=== PATIENT | female | born 1990 | race American Indian/Alaskan Native ===

== ENCOUNTER 2017-06-03 18:57 | Emergency (ER) | payer BC ==
--- NOTE | 2017-06-03 22:25 | Emergency Department Report ---
Chief Complaint: Vaginal Bleeding Stated Complaint: 6WKS PREG/VAG BLEEDING - HPI History of Present Illness: 27-year-old female past medical history presents with vaginal bleeding heavy worsening since yesterday. Patient states she is approximately 6 weeks by last menstrual period. Denies fever chills nausea or vomiting or dysuria. Came to the ED due to heavy worsening bleeding and slight crampy pain - ROS Review of Systems: 6 weeks by last menstrual period - Exam Vital Signs: Vital Signs 06/03/17 06/03/17 22:04 22:06 Temperature 98.5 F 98.5 F Pulse Rate 80 78 Respiratory 16 16 Rate Blood Pressure 145/91 145/91 O2 Sat by Pulse 100 100 Oximetry Physical Exam: Positive suprapubic discomfort, heart S1-S2. Awake alert and oriented 3 MSE screening note: Focused history and physical exam performed. Due to findings the following was ordered: Screening Assessment/Plan/Differential Dx: Vaginal bleeding during , threatened AB 1- This initial assessment/diagnostic orders/clinical plan/ treatment(s) is/are subject to change based on pt's health status, clinical progression and re- assessment by fellow clinical providers in the ED. Further treatment and workup at subsequent clinical provers discretion. Patient/guardians urged not to elope from ED as their condition may be serious if not clinically assessed and managed. 2-cBC, BMP, hCG level, ultrasound ED Disposition for MSE Condition: Stable
[2017-06-03] MEDS ORDERED: TYLENOL PO ONE (22:32)
[2017-06-03 22:58] LABS: Basophils # (Auto) 0.1 K/mm3 (0.0-0.1); Basophils % (Auto) 0.5 % (0.0-1.8); Eosinophils # (Auto) 0.2 K/mm3 (0.0-0.4); Eosinophils % (Auto) 1.7 % (0.0-4.3); Hematocrit 37.9 % (30.3-42.9); Hemoglobin 12.7 gm/dl (10.1-14.3); Lymphocytes # (Auto) 3.3 K/mm3 (1.2-5.4); Lymphocytes % (Auto) 29.8 % (13.4-35.0); Mean Corpuscular HGB Conc 33 % (30-34); Mean Corpuscular Hemoglobin 31 pg (28-32); Mean Corpuscular Volume 92 fl (79-97); Monocytes # (Auto) 0.7 K/mm3 (0.0-0.8); Monocytes % (Auto) 6.2 % (0.0-7.3); Platelet Count 346 K/mm3 (140-440); Red Blood Count 4.14 M/mm3 (3.65-5.03); Red Cell Distribution Width 13.1 % (13.2-15.2)
[2017-06-03 23:08] LABS: Bacteria,Urine 1+ /HPF (Negative); Bilirubin,Urine NEG (Negative); Blood,Urine LG (Negative); Calcium Oxalate Crystals,Urine 1+; Color,Urine Yellow (Yellow); Mucus,Urine 2+ /HPF; Protein,Urine <15 mg/dL mg/dL (Negative)
[2017-06-03 23:22] LABS: BUN/Creatinine Ratio 13; Blood Urea Nitrogen 8 mg/dL (7-17); Calcium 9.4 mg/dL (8.4-10.2); Hemolysis Index 13
--- NOTE | 2017-06-04 00:49 | Ultrasound Report ---
FINAL REPORT EXAM: US OB TRANSVAGINAL HISTORY: , bleeding, pain TECHNIQUE: Transvaginal imaging was obtained the pelvis along with Doppler interrogation of the uterus and adnexa. FINDINGS: The uterus is anteverted measuring 8.5 cm x 4.8 cm x 6.8 cm. The abdomen thickness is 8.2 mm. There is a very small cystic structure in the endometrium measuring 10 mm x 7 mm x 6 mm. This may represent a small gestational sac. A yolk sac or embryo is not seen. Free fluid is not identified. The right ovary is normal size contour blood flow and echotexture measuring 2.4 cm x 1.2 cm x 2 point cm. The left ovary measures 3.9 cm x 1.6 cm x 2.7 cm. There is a 1.5 cm functional cyst in left ovary. The blood flow is normal to left ovary. IMPRESSION: Very small intrauterine sac-like structure with measurements as described. This may represent an early gestational sac. A repeat study is recommended in 1 and half weeks to confirm viability or demise. 1.5 cm functional cyst in left ovary. No evidence of free fluid.
--- NOTE | 2017-06-04 01:01 | Ultrasound Report ---
FINAL REPORT EXAM: US OB < = 14 WEEKS FETUS HISTORY: , bleeding, pain TECHNIQUE: Transabdominal imaging was obtained of the pelvis. Doppler interrogation of the uterus and adnexa was obtained. FINDINGS: The uterus is anteverted measuring 8.5 cm x 4.8 cm x 6.8 cm. The endometrial thickness is 8.2 mm. Within the endometrium is a very small cystic structure measuring 10 mm x 7 mm x 6 mm. This may represent a very early gestational sac. A yolk sac and embryo are not seen. The cervix is closed. The right ovary is normal size contour blood flow and echotexture measuring 2.4 cm x 1.2 cm x 2.1 cm. Left ovary measures 3.9 cm x 1.6 cm x 2.7 cm. Within the left ovary is a 1.5 cm functional cyst. The blood flow is normal to left ovary. IMPRESSION: Very small intrauterine sac-like structure possibly representing an early gestational sac. Repeat imaging is recommended in 1 and half to 2 weeks to confirm viability or demise. 1.5 cm functional cyst in left ovary. No evidence of free fluid the pelvis.
--- NOTE | 2017-06-04 02:51 | Emergency Department Report ---
ED HPI - General Chief complaint: Vaginal Bleeding Stated complaint: 6WKS PREG/VAG BLEEDING Time Seen by Provider: 06/04/17 00:41 Source: patient Mode of arrival: Ambulatory Limitations: No Limitations - History of Present Illness Initial comments: 27-year-old female past medical history approximately 6 weeks by LMP presents with complaint of slightly crampy lower abdominal pain and vaginal bleeding which has worsened over the last 2-3 days. Slight clots being passed as per patient. Denies nausea vomiting fever or chills. Denies any upper abdominal pain. Denies any dysuria or increased urinary frequency. Patient is awake alert and oriented 3 not in acute distress and nontoxic appearing. 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 Has not yet had an ultrasound during . Complaint: vaginal bleeding Onset/Timin -: days(s) Radiation: suprapubic Severity: mild Severity scale (0 -10): 3 Quality: cramping Consistency: intermittent Associated symptoms: vaginal bleeding Vaginal bleeding: clots :: Yes Number of weeks : 6 OB History - Current : no complications Last menstrual period: 04/26/17 - Related Data : 4 Para: 2 Previous Rx's Medication Instructions Recorded Last Taken Type Acetaminophen [Acetaminophen TAB] 500 mg PO Q6HR PRN #20 tablet 06/04/17 Unknown Rx Allergies Allergy/AdvReac Type Severity Reaction Status Date / Time No Known Allergies Allergy Verified 06/04/17 00:50 ED Review of Systems ROS: Stated complaint: 6WKS PREG/VAG BLEEDING Other details as noted in HPI Constitutional: denies: chills, fever Eyes: denies: eye pain, eye discharge, vision change ENT: denies: ear pain, throat pain Respiratory: denies: cough, shortness of breath, wheezing Cardiovascular: denies: chest pain, palpitations Endocrine: no symptoms reported Gastrointestinal: denies: abdominal pain, nausea, diarrhea Genitourinary: as per HPI, abnormal menses. denies: urgency, dysuria, discharge Musculoskeletal: denies: back pain, joint swelling, arthralgia Skin: denies: rash, lesions Neurological: denies: headache, weakness, paresthesias Psychiatric: denies: anxiety, depression Hematological/Lymphatic: denies: easy bleeding, easy bruising ED Past Medical Hx - Past Medical History Previous Medical History?: Yes Hx Hypertension: Yes (post ) - Surgical History Past Surgical History?: Yes Additional Surgical History: right knee surgery - Social History Smoking Status: Never Smoker - Medications Home Medications: Home Medications Medication Instructions Recorded Confirmed Last Taken Type Acetaminophen [Acetaminophen TAB] 500 mg PO Q6HR PRN #20 tablet 06/04/17 Unknown Rx ED Physical Exam - General Limitations: No Limitations General appearance: alert, in no apparent distress - Head Head exam: Present: atraumatic, normocephalic - Eye Eye exam: Present: normal appearance, PERRL, EOMI - ENT ENT exam: Present: mucous membranes moist - Neck Neck exam: Present: normal inspection - Respiratory Respiratory exam: Present: normal lung sounds bilaterally. Absent: respiratory distress - Cardiovascular Cardiovascular Exam: Present: regular rate, normal rhythm. Absent: systolic murmur, diastolic murmur, rubs, gallop - GI/Abdominal GI/Abdominal exam: Present: soft, normal bowel sounds - External exam: Present: normal external exam Speculum exam: Present: vaginal bleeding Bi-manual exam: Present: normal bi-manual exam - Extremities Exam Extremities exam: Present: normal inspection - Back Exam Back exam: Present: normal inspection - Neurological Exam Neurological exam: Present: alert, oriented X3 - Psychiatric Psychiatric exam: Present: normal affect, normal mood - Skin Skin exam: Present: warm, dry, intact, normal color. Absent: rash ED Course Vital Signs 06/03/17 06/03/17 22:04 22:06 Temperature 98.5 F 98.5 F Pulse Rate 80 78 Respiratory 16 16 Rate Blood Pressure 145/91 145/91 O2 Sat by Pulse 100 100 Oximetry ED Medical Decision Making - Lab Data Result diagrams: 06/03/17 22:23 06/03/17 22:23 - Medical Decision Making A/P: Threatened miscarriage, vaginal bleeding during early 1-case discussed with Dr. Larios, labs and ultrasound report reviewed with Dr. Larios 2-I emphasized to the patient the importance of follow-up in ED in 48 hours or in her FIELD APPLICATION ENGINEER's office for repeat ultrasound and hCG level. I gave patient ectopic precautions and advised her to return to the ED immediately for any sharp abdominal pain weakness fever chills persistent nausea and vomiting worsens vaginal bleeding 3-follow-up with FIELD APPLICATION ENGINEER. Patient states she also has a scheduled appointment this with her FIELD APPLICATION ENGINEER 4- GC and wet prep sent 5- 48 hour follow-up in ED for repeat hCG and ultrasound, pt stated she understood the importance of follow up after i explained concern frp possible early ectopic as US does not clearly suggest IUP Critical care attestation.: If time is entered above; I have spent that time in minutes in the direct care of this critically ill patient, excluding procedure time. ED Disposition Clinical Impression: Threatened miscarriage in early , Vaginal bleeding during Disposition: TO HOME OR SELFCARE Is pt being admited?: No Does the pt Need Aspirin: No Condition: Stable Instructions: Ectopic (ED), Threatened Miscarriage (ED) Additional Instructions: Follow-up in ED in 48 hours for repeat ultrasound and hCG level Prescriptions: Acetaminophen [Acetaminophen TAB] 500 mg PO Q6HR PRN #20 tablet PRN Reason: Pain Referrals: [facility] [Provider Group] - 3-5 Days Forms: Work/School Release Form(ED) Time of Disposition: 02:52
[2017-06-04 03:20] VITALS: BP 123/84
== END 2017-06-04 02:55 | disposition home or self-care (01) ==
LOC: ED 18:57
DX: O20.0 Threatened abortion (principal); Z3A.01 Less than 8 weeks gestation of pregnancy
CPT/HCPCS: 36415; 76801; 76817; 80048; 81001; 84702; 84703; 85025; 86850; 86900; 86901; 87210; 87591; 99284

== ENCOUNTER 2018-04-22 06:04 | Day surgery (SDC) | payer BC, MEDICAID ==
--- NOTE | 2018-04-21 18:29 | History and Physical Report ---
History of Present Illness Date of examination: 04/16/18 Chief complaint: Sterilization History of present illness: Contraception Past: Paragard IUD Current: nothing Discussed: oral contraceptive pill, contraceptive patch, contraceptive vaginal ring, Depo Provera injection, Paragard IUD, Mirena IUD, condoms, emergency contraception, Tubal Ligation Desired: Tubal Ligation Related Contraceptive Symptoms Complains of: Abdominal pain: No Chest pain: No Headache: No Leg pain: No Acne: No Breast tenderness: No Weight gain: No Depression: No Missed pills: No Midcycle spotting: No Menorrhagia: No Amenorrhea: No Discussed with patient: Contraceptive types Vital Signs: Patient Profile: 28 Years Old Female Height: 67 inches Weight: 172 pounds BMI: 26.94 BP sittin / 72 (left arm) Current Method of Contraception: nothing Past History : 5 Term Births: 3 Premature Births: 0 Living Children: 3 Para: 3 Mult. Births: 0 Prev : 0 Prev. attempt? 0 Aborta: 2 Elect. Ab: 1 Spont. Ab: 1 Ectopics: 0 # 1 Delivery date: 02/11/2010 Weeks Gestation: 39 Delivery type: Hours of labor: 10 Anesthesia type: epidural Delivery location: [place], [place] Sex: Female weight: 7-11 Name: Bahman # 2 Delivery date: 07/17/2012 Weeks Gestation: 39 Delivery type: Hours of labor: 11 Anesthesia type: epidural Delivery location: [place], [place] Sex: Male weight: 8-11 Name: Que Comments: Induction for macrosomia,eleevated BP,mild shoulder dystocia no injuries # 3 Delivery date: 02/2016 Delivery type: EAB # 4 Delivery date: 05/2017 Delivery type: SAB Comments: No D&C # 5 Delivery date: 03/13/2018 Weeks Gestation: 40 Delivery type: Vaginal Anesthesia type: epidural Delivery location: [facility] Infant Sex: male weight: 8.25 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 of genital herpes: no Partner hx. of genital herpes: no Hx of STD: No Other: GC Active Medications (reviewed today): OXYCODONE-ACETAMINOPHEN 5-325 MG ORAL TABLET (OXYCODONE-ACETAMINOPHEN) 1-2po q6h IBUPROFEN 800 MG ORAL TABLET (IBUPROFEN) 1 po TID (PRN) Current Allergies (reviewed today): No known allergies Past Medical History: Reviewed history from 01/22/2017 and no changes required: Negative Past Medical History Past Surgical History: Reviewed history from 01/22/2017 and no changes required: Right knee 8yo Family History Summary: Other family member - Has No Family History of Uterine Cancer - Entered On: 04/16/2018 Other family member - Has No Family History of Stomach Cancer - Entered On: 04/16/2018 Other family member - Has No Family History of Spontaneous DVT-PE - Entered On: 04/16/2018 Other family member - Has No Family History of Small Bowel Cancer - Entered On: 04/16/2018 Other family member - Has No Family History of Pancreatic Cancer - Entered On: 04/16/2018 Other family member - Has No Family History of Kidney/Urinary Tract Cancer - Entered On: 04/16/2018 Other family member - Has No Family History of Brain Cancer - Entered On: 019 Other family member - Has No Family History of Biliary Tract Cancer - Entered On: 04/16/2018 Social History: Reviewed history from 01/22/2017 and no changes required: 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 Risk Factors: Smoked Tobacco Use: Never smoker Smokeless Tobacco Use: Never Passive smoke exposure: no Drug use: no HIV high-risk behavior: no Alcohol use: yes Exercise: no Seatbelt use: 100 % Previous Tobacco Use: Signed On 04/10/2018 Smoked Tobacco Use: Never smoker Smokeless Tobacco Use: Never Counseled to quit/cut down: yes Passive smoke exposure: no Drug use: no HIV high-risk behavior: no Previous Alcohol Use: Signed On 04/10/2018 Alcohol use: yes Drinks per day: social Exercise: no Seatbelt use: 100 % Dietary Counseling: pn yes PAP Smear History: Date of Last PAP Smear: 01/22/2017 Physical Exam Appearance: well developed, well nourished, no acute distress Other Exams Lungs: no rales, rhonchi, or wheezes Heart: S1, S2, no murmur, rub, or gallop Impression & Recommendations: Problem # 1: Sterilization (ICD-V25.2) (UEF69-M15.2) Risks of regret emphasized. Permanent and irreversible condition explained to patient. Pt verbalized understanding. The risks and alternatives to this surgery were reviewed with the patient.1%failure rate emphasized She desires removal of both fallopian tubes for sterilization. Possible laparoscopy or laparotomy explained to patient. She was informed of possible bleeding, infection, injury to bowel, bladder, ureters or other adjacent organs. The patient was instructed/informed the following: The normal length of hospital stay for this procedure. Nothing to eat or drink after midnight the evening prior to surgery. Clear liquids the day before surgery. Fleets enema the day prior to surgery. Pre-op instruction sheets given. Wound care instructions given. Infection precautions reviewed, patient to call for any signs or symptoms of infection. The usual discomforts associated with this procedure were detailed. Proper use of pain medicines was reviewed. Patient was given ample opportunity to have all her questions answered before signing informed consent. Medications Added to Medication List This Visit: 1) Oxycodone-acetaminophen 5-325 Mg Oral Tablet (Oxycodone-acetaminophen) .... 1-2po q6h 2) Ibuprofen 800 Mg Oral Tablet (Ibuprofen) .... 1 po tid (prn) Prescriptions: OXYCODONE-ACETAMINOPHEN 5-325 MG ORAL TABLET (OXYCODONE-ACETAMINOPHEN) 1-2po q6h #10 x 0 Entered and Authorized by: Gina Smith MD Method used: Print then Give to Patient RxID: [id number] IBUPROFEN 800 MG ORAL TABLET (IBUPROFEN) 1 po TID (PRN) #30 Tablet x 0 Entered and Authorized by: Gina Smith MD Method used: Print then Give to Patient RxID: [id number] Medications and Allergies Allergies Allergy/AdvReac Type Severity Reaction Status Date / Time No Known Allergies Allergy Verified 04/18/18 12:31 Home Medications Medication Instructions Recorded Confirmed Last Taken Type No Known Home Medications [No 04/18/18 04/18/18 Unknown History Reported Home Medications] Active Meds: Active Medications Celecoxib (Celebrex) 200 mg PO PREOP NR Stop: 04/22/18 16:00 Gabapentin (Neurontin) 300 mg PO PREOP NR Stop: 04/22/18 16:00 Lactated Ringer's (Lactated Ringers) 1,000 mls @ 100 mls/hr IV DIRECT JEANA Cefazolin Sodium (Ancef/Sterile Water 2 Gm/20 Ml) 2 gm in 20 mls @ 80 mls/hr IV PREOP NR; Protocol Midazolam HCl (Versed) 2 mg IV PREOP NR Stop: 04/22/18 20:00 Assessment and Plan - Patient Problems (1) Sterilization Status: Acute
[~2018-04-22 06:04] MED LIST: ANCEF/STERILE WATER 2 GM/20 ML 2 GM/20 ML SYRINGE IV NR; LACTATED RINGERS 1,000 ML IV SCH; NEURONTIN PO NR; VERSED IV NR
[2018-04-22] MEDS ORDERED: SUBLIMAZE ONE (07:06)
[2018-04-22] MEDS ORDERED: XYLOCAINE MPF 2% ONE (07:06)
[2018-04-22] MEDS ORDERED: ZEMURON IV ONE (07:06)
[2018-04-22] MEDS ORDERED: DIPRIVAN 10 MG/ML IV ONE (07:07)
[2018-04-22] MEDS ORDERED: MARCAINE 0.5% INFILTRATI ONE ×2 (07:19→08:37)
[2018-04-22] MEDS ORDERED: ROBINUL ONE (08:10)
[2018-04-22] MEDS ORDERED: BLOXIVERZ ONE (08:10)
[2018-04-22] MEDS ORDERED: DILAUDID IV PRN (08:27)
--- NOTE | 2018-04-22 08:29 | Anesthesia Day of Surgery ---
Anesthesia Day of Surgery - Day of Surgery Patient Examined: Yes Patient H&P Reviewed: Yes Patient is NPO: Yes
--- NOTE | 2018-04-22 08:29 | Anesthesia Consultation ---
Anesthesia Consult and Med Hx Date of service: 04/22/18 - Airway Anesthetic Teeth Evaluation: Good ROM Head & Neck: Adequate Mental/Hyoid Distance: Adequate Mallampati Class: Class I Intubation Access Assessment: Good - Pulmonary Exam CTA: Yes - Cardiac Exam Cardiac Exam: RRR - Pre-Operative Health Status ASA Pre-Surgery Classification: ASA1 Proposed Anesthetic Plan: General - Pulmonary Hx Smoking: No Hx Asthma: No Hx Respiratory Symptoms: No (No recent cough or flu-like symptoms) Hx Sleep Apnea: No - Cardiovascular System Hx Hypertension: No Hx Heart Attack/AMI: No Hx Percutaneous Transluminal Coronary Angioplasty (PTCA): No - Central Nervous System Hx Seizures: No CVA: No - Gastrointestinal Hx Gastroesophageal Reflux Disease: No - Endocrine Hx Renal Disease: No Hx Liver Disease: No Hx Insulin Dependent Diabetes: No Hx Non-Insulin Dependent Diabetes: No Hx Thyroid Disease: No - Other Systems Hx Alcohol Use: Yes (Occas) Hx Obesity: No - Additional Comments Anesthesia Medical History Comments: No hx anesthetic complications.
[2018-04-22] MEDS ORDERED: TORADOL ONE (08:37)
[2018-04-22] MEDS ORDERED: NACL 0.9% IR ONE (08:38)
--- NOTE | 2018-04-22 08:51 | Operative Report ---
Operative Report Operative Report: Date: 04/22/2018 Preoperative diagnosis: Desire sterilization Postoperative diagnosis: Desire sterilization Procedure: Laparoscopic bilateral salpingectomy for sterilization Surgeon: Gina Smith MD High School Music Director: [] Anesthesiologist: Maximo Curry M.D. Anesthesia: General endotracheal anesthesia EBL: 5 mL Findings: Grossly normal uterus tubes and ovaries. She had a paratubal cyst on the left ovary that was removed and sent to pathology Procedure: After risks, benefits, consequences, alternatives and complications were discussed patient voiced her understanding and desire to proceed, she was taken to the OR and placed in the supine position. After general anesthesia was induced, she was placed in the dorsal lithotomy position. Exam under anesthesia was unremarkable. She was then prepped and draped in the usual sterile fashion. After a timeout was performed, the bladder was drained of approximately 50 mL of clear yellow urine using red rubber catheter. A operative speculum was introduced into the vagina, and anterior lip cervix was grasped with a single-toothed tenaculum. The uterus was sounded to 10 cm. The cervix was progressively dilated to allow the [employer] uterine manipulator. The tenaculum and speculum were removed. Sterile gloves were placed and attention was turned to the abdomen. An supraumbilical midline incision was made and a 5 mm Optiview trocar with scope and camera attached were placed through the incision. The abdomen was entered under direct visualization. The abdomen was then insufflated. No bowel, bladder, ureteral, or major vessel injury was noted. She was then placed in steep Trendelenburg position. The above findings were noted. An additional 5 mm trocar was placed through a suprapubic midline incision made approximately 2 cm superior to the symphysis pubis. A 5 mm trocar was introduced under direct visualization. No bowel, bladder or ureteral or major vascular injury was noted. The uterus was elevated, using the 5 mm Voyant fusion device bilateral salpingectomy was performed. Each tube was removed through the suprapubic trocar. Attention was turned to the adnexa where hemostasis was noted. Again no bowel, bladder or ureteral or major vascular injury was noted. The CO2 was released from the abdomen under direct visualization. All areas appeared to be hemostatic again no obvious evidence of bowel, bladder, ureteral or vascular injury. At this point the procedure was ended. The remaining CO2 in the abdomen was released. Patient was taken out of Trendelenburg position. The incisions were reapproximated using 4-0 Vicryl in a subcuticular manner. The incisions were then infused with half percent Fany ine without epinephrine. Then attention was turned to the vagina where the uterine manipulator was removed. No bleeding was noted from the vagina. The Salvador catheter was then removed, clear yellow urine was noted to drain into the Salvador tubing as well as into the bag. Counts were correct 3 patient tolerated procedure well was taken to recovery in stable condition
--- NOTE | 2018-04-22 09:30 | Discharge Summary ---
Providers - Providers Date of discharge: 04/22/18 Attending physician: ONESIMO SUBRAMANIAN Primary care physician: SYDNI EASTON Hospitalization Condition: Good Procedures: (B) salpingectomy for sterilization Hospital course: Unremarkable, elevated BP's Disposition: DC- TO HOME OR SELFCARE - Discharge Diagnoses (1) Sterilization Status: Acute Core Measure Documentation - Palliative Care Palliative Care/ Comfort Measures: Not Applicable - Core Measures Any of the following diagnoses?: none Exam - Constitutional Vitals: Temp Pulse Resp BP Pulse Ox 97.2 F L 90 16 140/92 100 04/22/18 08:55 04/22/18 09:15 04/22/18 09:15 04/22/18 09:15 04/22/18 09:15 General appearance: Present: no acute distress - Respiratory Respiratory effort: normal - Cardiovascular Rhythm: regular - Extremities Extremities: no ischemia, No edema - Psychiatric Psychiatric: appropriate mood/affect, intact judgment & insight, memory intact, cooperative Plan Activity: other (no sex, may driving in 3days) Weight Bearing Status: Full Weight Bearing Diet: low salt Wound: open to air, keep clean and dry Special Instructions: no heavy lifting (greater than 2lbs) Follow up with: ONESIMO SUBRAMANIAN MD [Staff Physician] - (as scheduled) RAINER LLOYD MD [Staff Physician] - 3 Days (elevated BP)
[2018-04-22 10:02] VITALS: BP 128/77
--- NOTE | 2018-04-22 10:52 | Post Anesthesia Evaluation ---
- Post Anesthesia Evaluation Patient Participated: Yes Airway Patent: Yes Stable Respiratory Function: Yes Nausea/Vomiting: No Temp > 96.8F: Yes Pain Manageable: Yes Adequeate Hydration: Yes Anesthesia Complications: No
== END 2018-04-22 11:08 | disposition home or self-care (01) ==
LOC: OR 06:04
PROVIDERS: ATTEND Obstetrics & Gynecology
DX: Z30.2 Encounter for sterilization (principal); N83.8 Other noninflammatory disorders of ovary, fallopian tube and broad ligament; Z72.89 Other problems related to lifestyle; Z79.899 Other long term (current) drug therapy; Z98.890 Other specified postprocedural states
CPT/HCPCS: 58661; 81025; 86850; 86900; 86901; 88302; 88305; J0690; J1885; J2250; J2704; J2710; J3010; J7120